=== PATIENT | female | born 1965 | race American Indian/Alaskan Native ===

== ENCOUNTER 2017-01-29 12:34 | Emergency (ER) | payer OTHER ==
[2017-01-29 14:18] LABS: Basophils % (Auto) 0.8 % (0.0-1.8); Hematocrit 39.8 % (30.3-42.9); Mean Corpuscular HGB Conc 33 % (30-34); Mean Corpuscular Hemoglobin 30 pg (28-32); Mean Corpuscular Volume 91 fl (79-97); Platelet Count 244 K/mm3 (140-440); Red Blood Count 4.36 M/mm3 (3.65-5.03); White Blood Count 5.2 K/mm3 (4.5-11.0)
[2017-01-29 14:36] LABS: Alanine Aminotransferase 13 units/L (7-56); Albumin 3.9 g/dL (3.9-5); Albumin/Globulin Ratio 1.3 %; Alkaline Phosphatase 77 units/L (35-129); Anion Gap 15 mmol/L; BUN/Creatinine Ratio 42; Blood Urea Nitrogen 21 mg/dL (7-17); Calcium 9.1 mg/dL (8.4-10.2); Carbon Dioxide 32 mmol/L (22-30); Chloride 97.1 mmol/L (98-107); Glucose 97 mg/dL (65-100); Sodium 140 mmol/L (137-145); Total Protein 6.9 g/dL (6.3-8.2)
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
[2017-01-29] MEDS ORDERED: TORADOL IM ONE (15:19)
[2017-01-29] MEDS ORDERED: PERCOCET 5/325 PO ONE (15:19)
[2017-01-29] MEDS ORDERED: FLEXERIL PO ONE (15:20)
--- NOTE | 2017-01-29 15:24 | XRay Report ---
FINAL REPORT PROCEDURE: XR CHEST ROUTINE 2V TECHNIQUE: Two views of the chest are obtained HISTORY: Chest Pain COMPARISON: No prior studies are available for comparison. FINDINGS: Lungs appear hyperinflated, possibly due to COPD. Postoperative changes are seen in the anterior mediastinum. Mild scoliosis is seen. The heart is normal in size. There is no focal infiltrate, pneumothorax or pleural effusion. IMPRESSION: Lungs appear hyperinflated.
[2017-01-29 18:36] VITALS: BP 116/68
[2017-01-29 19:20] LABS: Urine Drugs of Abuse Note Disclamer
[2017-01-29 19:50] LABS: Bacteria,Urine 1+ /HPF (Negative); Bilirubin,Urine NEG (Negative); Blood,Urine NEG (Negative); Ketones,Urine NEG (Negative); Leukocyte Esterase,Urine NEG (Negative); Mucus,Urine FEW /HPF; Nitrite,Urine NEG (Negative); Protein,Urine <15 mg/dL mg/dL (Negative); Urobilinogen,Urine < 2.0 mg/dL (<2.0); WBC,Urine < 1.0 /HPF (0.0-6.0)
== END 2017-01-29 18:35 | disposition home or self-care (01) ==
LOC: ED 12:34
DX: S39.012A Strain of muscle, fascia and tendon of lower back, initial encounter (principal); R07.89 Other chest pain; M79.7 Fibromyalgia; K21.9 Gastro-esophageal reflux disease without esophagitis; M19.90 Unspecified osteoarthritis, unspecified site; J45.909 Unspecified asthma, uncomplicated; Z88.2 Allergy status to sulfonamides; Z88.8 Allergy status to other drugs, medicaments and biological substances; V89.2XXA Person injured in unspecified motor-vehicle accident, traffic, initial encounter; Y93.89 Activity, other specified; Y92.89 Other specified places as the place of occurrence of the external cause; Y99.8 Other external cause status
CPT/HCPCS: 36415; 71020; 80053; 80307; 81001; 84484; 85025; 93005; 93010; 96372; 99284; J1885